=== PATIENT | female | born 1995 | race Caucasian/White ===

== ENCOUNTER 2021-10-18 06:37 | Inpatient (IN) | payer MEDICAID ==
[~2021-10-18] VITALS: Ht 160 cm; Wt 123.2 kg
[2021-10-19] VITALS (17 sets, daily range): BP systolic 84–130; BP diastolic 27–82; PULSE 79–123; TEMP 97.6–98.3
--- NOTE | 2021-10-19 06:35 | NUR ---
PT AMBULATORY TO UNIT FOR SCHEDULED REPEAT CSECTION. DENIES LEAKING OF FLUID, DENIES CONTRACTIONS, AND REPORTS POSITIVE MOVEMENT. EFM/TOCO TRACING CATEGORY 1 STRIP UPON ARRIVAL WITH ACCELERATIONS AND NO DECELERATIONS NOTED. MODERATE VARIABILITY. FHR BASELINE 135. ALL CONSENTS SIGNED AND QUESTIONS ANSWERED. ORIENTED TO ROOM AND PLAN OF CARE. DENIES FURTHER QUESTIONS OR CONCERNS AT THIS TIME.
[2021-10-19 07:06] LABS: BASO % 0.2 % (0.0-2.0); EOS # 0.1 K/mm3 (0.0-0.7); EOS % 1.1 % (0.0-4.0); GRAN # 8.6 K/mm3 (1.4-6.5); GRAN % 70.7 % (42.2-75.2); HEMOGLOBIN 10.4 g/dl (12.5-16.0); LYMPH # 2.4 K/mm3 (1.2-3.4); LYMPH % 19.8 % (20.0-51.0); MEAN CELL VOLUME 79 fl (80.0-100.0); MEAN CORPUSCULAR HEMOGLOBIN 25 pg (27-31); MEAN CORPUSCULAR HGB CONC 31 g/dl (33.0-37.0); MEAN PLATELET VOLUME 11.9 fl (7.4-10.4); MONO # 0.9 K/mm3 (0.1-0.6); MONO % 7.1 % (1.7-9.3); PLATELET COUNT 212 K/mm3 (130-400); RED BLOOD COUNT 4.22 M/mm3 (4.10-5.30); REDCELL DISTRIBUTION WIDTH-CV 15.4 % (11.5-14.5)
[2021-10-19 07:07] LABS: HEMATOCRIT 33.3 % (37.0-47.0)
[2021-10-19 07:27] LABS: ALBUMIN 2.8 gm/dL (3.5-5.0); BILIRUBIN,TOTAL 0.4 mg/dL (0.2-1.2); CALCIUM 8.4 mg/dL (8.4-10.2); CREATININE, serum 0.63 mg/dL (0.57-1.11); POTASSIUM 3.9 mmol/L (3.5-4.5); TOTAL PROTEIN 6.9 gm/dL (6.2-8.1)
[2021-10-19 07:47] LABS: THYROID STIMULATING HORMONE 0.956 uIU/mL (0.350-4.940)
--- NOTE | 2021-10-19 08:45 | NUR ---
PT TO PACU FOLLOWING SCHEDULED CSECTION DELIVERY OF VIABLE MALE INFANT AT THIS TIME. PT HYPOTENSIVE BUT ASYMPTOMATIC. DENIES NAUSEA OR FEELING "FAINT". TALKATIVE AND FULLY ALERT AND ORIENTED. LOCHIA SCANT. FUNDUS FIRM AT UMBILICUS, NO CLOTS NOTED WITH FUNDAL MASSAGE. PT DENIES PAIN. REQUESTS TO AVOID ALL NARCOTIC PAIN MEDICATION FOLLOWING THE OR DUE TO HX. OF ADDICTION. AWARE. 0915: VITAL SIGNS REMAIN STABLE. PT IN STABLE CONDITION. FUNDUS FIRM AT UMBILICUS. LOCHIA REMAINS SCANT WITH NO CLOTS NOTED. PT TRANSFERRED TO ROOM VIA BED TO CONTINUE RECOVERY.
[2021-10-19] MEDS ORDERED: SYNTHROID0.05 MG/TA PO (09:59)
--- NOTE | 2021-10-19 10:01 | NUR ---
PT REQUESTING TO AVOID ALL PO NARCOTIC USE DUE TO HX.ADDICTION FOLLOWING PREVIOUS CSECTIONS. AWARE AND ADJUSTING MEDICATIONS APPROPRIATELY. PT STATES THIS AM SHE WAS "NOT TAKING ANY MEDICATIONS ANYMORE AT HOME," AND AT THIS TIME STATES "I ACTUALLY WAS TAKING MY LEVOTHYROXINE STILL." ORDERS TO CONTINUE LEVOTHYROXINE 0.5MG AT THIS TIME PER TORB.
--- NOTE | 2021-10-19 19:20 | NUR ---
1919-REPORT RECEIVED FROM JAMES NOE RN. ASSUMED CARE OF PATIENT AT THIS TIME.
[2021-10-20 03:00] VITALS: BP 120/71; PULSE 79; TEMP 97.7
[2021-10-20 05:37] LABS: HEMATOCRIT 29.3 % (37.0-47.0); HEMOGLOBIN 9.1 g/dl (12.5-16.0)
[2021-10-20 08:09] VITALS: BP 130/76; PULSE 76; TEMP 98.2
[2021-10-20] MEDS ORDERED: IBU800 M1 PO (08:46)
[2021-10-20] MEDS ORDERED: FERROUS SU325 MG/TAB PO (08:46)
[2021-10-20] MEDS ORDERED: NORCO 325 MG-51 TAB PO (08:46)
--- NOTE | 2021-10-20 09:31 | NUR ---
Initial visit; Patient thanked Marshmallow Machine Worker for offering congratulations and God's blessings for the of her son. Marshmallow Machine Worker thanked patient for choosing [facility].
--- NOTE | 2021-10-20 13:37 | NUR ---
film processing utility worker met with patient at bedside. Patient reports that this his her 5th baby with her partner (Maycol) of 7 years. Patient states that she owns a house in [place], but that they come down here to [employer] and are currently staying at the [facility]. She, her partner and 5 children are planning on staying at the [place] [id number] for the next two weeks until she can have her post follow up and baby can redo hearing test as he failed today's. When asked what brought them down here for delivery, she verbalized " my neighbors are really racist and i didn't want them know i had the baby". Patient reports that they have everything they need to care for the baby. She is planning breast feeding and the baby is going to sleep in a playpen bassinet. She did request to be sent home with a new package of diapers. Patient had made a comment to her overnight nurse asking for a new carseat, because the one that they have is pink and that Maycol would "not take his son home in a pink carseat". During interaction, patient states that Maycol had found a carseat through [facility] and are planning on picking it up after they leave here. Baby's doctor will be Christopher Galo out of [place], who also covers the [place] area. Patient was unaware of being which is why she didn't seek care until close to 20 weeks.
== END 2021-10-20 13:55 | disposition home or self-care (01) | DRG 788 ==
LOC: OB 10-19 06:00 → LDR 10-19 06:37 → OB 10-20 13:55
PROVIDERS: ADMIT Obstetrics & Gynecology
PROC: 10D00Z1 Extraction of Products of Conception, Low, Open Approach (ICD-10-PCS; principal; 2021-10-19)
DX: O34.211 Maternal care for low transverse scar from previous cesarean delivery (principal); O99.214 Obesity complicating childbirth; O99.02 Anemia complicating childbirth; D64.9 Anemia, unspecified; O99.824 Streptococcus B carrier state complicating childbirth; O99.62 Diseases of the digestive system complicating childbirth; K21.9 Gastro-esophageal reflux disease without esophagitis; O99.284 Endocrine, nutritional and metabolic diseases complicating childbirth; E03.8 Other specified hypothyroidism; O69.81X0 Labor and delivery complicated by cord around neck, without compression, not applicable or unspecified; Z37.0 Single live birth; Z3A.40 40 weeks gestation of pregnancy
CPT/HCPCS: J0171; J0690; J1100; J1885; J2370; J2405; J2590; J7120

== ENCOUNTER 2023-09-20 16:55 | Inpatient (IN) | payer MEDICAID ==
[~2023-09-20] VITALS: Ht 157.5 cm; Wt 126.4 kg
[~2023-09-20 16:55] MED LIST: FERROUS SU325 MG/TAB PO; IBU800 M1 PO; NORCO 325 MG-51 TAB PO; SYNTHROID0.05 MG/TA PO
[2023-09-26] VITALS (28 sets, daily range): BP systolic 73–138; BP diastolic 33–82; PULSE 82–121; TEMP 98.2–99.1
--- NOTE | 2023-09-26 09:30 | NUR ---
AMBULATED ONTO UNIT. PT ESCORTED TO BY CREDIT ANALYST. PT PRESENTING FOR SCHEDULED . PT CHANGED INTO GOWN. PT PLACED ON EFM AND VS OBTAINED. PT DENIES LOF/VAG BLEEDING. PT ENDORSES MOVEMENT. PT DENIES COMPLAINTS/CONCERS AT THIS TIME.
[2023-09-26 10:20] LABS: BASO % 0.2 % (0.0-2.0); EOS # 0.1 K/mm3 (0.0-0.7); GRAN # 9.7 K/mm3 (1.4-6.5); GRAN % 74.6 % (42.2-75.2); HEMOGLOBIN 10.8 g/dl (12.5-16.0); LYMPH # 2.1 K/mm3 (1.2-3.4); LYMPH % 15.9 % (20.0-51.0); MEAN CELL VOLUME 80 fl (80.0-100.0); MEAN CORPUSCULAR HEMOGLOBIN 25 pg (27-31); MEAN CORPUSCULAR HGB CONC 32 g/dl (33.0-37.0); MEAN PLATELET VOLUME 11.8 fl (7.4-10.4); MONO # 0.9 K/mm3 (0.1-0.6); MONO % 7.2 % (1.7-9.3); PLATELET COUNT 230 K/mm3 (130-400); RED BLOOD COUNT 4.31 M/mm3 (4.10-5.30); REDCELL DISTRIBUTION WIDTH-CV 14.9 % (11.5-14.5)
[2023-09-26 10:21] LABS: HEMATOCRIT 34.3 % (37.0-47.0)
--- NOTE | 2023-09-26 21:00 | NUR ---
PT UP OOB WITH ASSISTANCE FROM THIS RN AT 2044. PT ATTEMPTED TO STAND AT THE SIDE OF THE BED AND SAT BACK DOWN STATING HER LEFT FOOT WAS STILL NUMB. THIS RN ASSISTED THE PT ON TO THE [facility], AND WHEELED PT INTO THE BATHROOM. OLIVAREZ REMOVED, 800 ML EMPTIED FROM OLIVAREZ. KATHY CARE PERFORMED BY THIS RN. PT PLACED IN CLEAN GOWN [facility] PT ASSISTED BACK TO BED. PT EDUCATED ON FALL SAFETY PRECAUTIONS AND TO CALL FOR ASSISTANCE BEFORE GETTING UP OOB. BLEEDING REMAINS WNL WITH BINDER ON. INCISION DRESSING C/D/I. NOURISHMENT PROVIDED TO MOTHER AND MOTHER BEGINS TO PUMP AT THIS TIME.
--- NOTE | 2023-09-26 21:30 | NUR ---
PT REPORTED EARLIER TO THIS RN THAT SHE PURCHASED A CAR SEAT FROM [employer] THAT WAS , AND IS UNABLE TO PURCHASE A NEW CAR SEAT AT THIS TIME. PT NOW REPORTS TO THIS RN THAT SHE WILL BE HAVING SOMEONE DONATE A CAR SEAT FROM THE [facility] TOMORROW AT 0900. ADMINISTRATIVE TECH CONSULT REMAINS IN PLACE AT THIS TIME.
[2023-09-27] VITALS: BP 141/76; PULSE 84; TEMP 97.7
[2023-09-27 04:00] VITALS: BP 144/7; PULSE 73; TEMP 98
[2023-09-27 07:30] VITALS: BP 154/83; PULSE 80; TEMP 97.7
[2023-09-27] MEDS ORDERED: IBU600 MG PO (07:33)
[2023-09-27] MEDS ORDERED: TYLENOL 500MG500 MG PO (07:33)
--- NOTE | 2023-09-27 09:27 | NUR ---
Initial visit; Patient thanked Forepart Rasper for offering congratulations and God's blessings for the of her son. Forepart Rasper thanked patient for choosing our hospital.
--- NOTE | 2023-09-27 10:09 | NUR ---
SOCIAL WORK TALKS TO THIS RN AND STATES THAT SOMEONE IS BRINGING A BASSINET AND DIAPERS FOR MOTHER FOR BABY.
--- NOTE | 2023-09-27 15:06 | NUR ---
Service Agent met with patient in response to consult for assistance obtaining a carseat as the one patient brought in is . Patient stated she arranged for someone to bring her a carseat and advised it was someone from the [facility]. Patient lives in [place], [place] with father of her children, Sheryl Santillan and their five other children ages 7, 6, 6, 4, and 1. Patient advised she chose to deliver here as she does not like the hospital in [facility] where she lives. Patient also advised they have a neighbor who is a rasict that they have had a number of problems with. Patient stated they have security cameras up and that she feels safe at home because she is never home alone without her . Patient and Maycol work for [employer] so they come to [place] to work and will sometimes stay in a hotel so they don't have to drive back and forth. Patient homeschools their children and advised they are registered with the state. Patient stated they do need some assistance with securing supplies for baby including some more diapers, a bassinet, and bottles. Patient advised they have a pack n play, but that with her , bending over the edge of the pack n play would be challenging. Patient is agreeable to SW securing her assistance with these items. SW contacted Tawana at [employer] and provided information about patient and new baby boy Chase. Tawana will deliver items up to patient's room, including diapers, a bassinet, and an assortment of other baby items. BANG updated RN and Dr. Browne.
== END 2023-09-27 14:16 | disposition home or self-care (01) | DRG 788 ==
LOC: OB 09-26 09:27
PROVIDERS: ADMIT Obstetrics & Gynecology
PROC: 10D00Z1 Extraction of Products of Conception, Low, Open Approach (ICD-10-PCS; principal; 2023-09-26)
DX: O34.211 Maternal care for low transverse scar from previous cesarean delivery (principal); Z3A.39 39 weeks gestation of pregnancy; Z37.0 Single live birth; O99.284 Endocrine, nutritional and metabolic diseases complicating childbirth; E03.8 Other specified hypothyroidism; O99.214 Obesity complicating childbirth; O99.824 Streptococcus B carrier state complicating childbirth; O99.62 Diseases of the digestive system complicating childbirth; K21.9 Gastro-esophageal reflux disease without esophagitis; Z88.8 Allergy status to other drugs, medicaments and biological substances; Z91.018 Allergy to other foods; Z23 Encounter for immunization
CPT/HCPCS: J0171; J0665; J0690; J1100; J1885; J1940; J2371; J2405; J2590; J7120